=== PATIENT | female | born 1990 | race Two or more races ===

== ENCOUNTER 2025-08-18 22:56 | Emergency (ER) | payer SELFPAY ==
[~2025-08-18] VITALS: Ht 154.9 cm; Wt 39.6 kg
[2025-08-18 23:08] VITALS: BP 129/92; PULSE 83; RESP 16; TEMP 98.2; O2SAT 98
[2025-08-19] MEDS: IBUPROFEN 800 MG TAB PO ONE (02:04)
[2025-08-19] MEDS ORDERED: IBUP-1456 PO (02:12)
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
== END 2025-08-19 02:47 | disposition home or self-care (01) ==
LOC: ER 22:56
DX: S39.012A Strain of muscle, fascia and tendon of lower back, initial encounter (principal); V49.9XXA Car occupant (driver) (passenger) injured in unspecified traffic accident, initial encounter; Y93.89 Activity, other specified; Y92.410 Unspecified street and highway as the place of occurrence of the external cause; Y99.8 Other external cause status
CPT/HCPCS: 72100